=== PATIENT | male | born 1990 | race African-American/Black ===

== ENCOUNTER 2019-11-02 03:35 | Emergency (ER) | payer OTHER ==
[~2019-11-02] VITALS: Ht 177.8 cm; Wt 75.0 kg
[2019-11-02] MEDS ORDERED: SODIUM CHLORIDE 0.9% 1,000 ML IV ONE (06:45)
[2019-11-02] MEDS ORDERED: MORPHINE SULFATE 4 MG/ML CPJ (NOT FOR IM USE) IV ONE ×2 (06:45→09:00)
[2019-11-02] MEDS ORDERED: ONDANSETRON HCL 4MG/2ML INJ IV ONE (06:45)
[2019-11-02 06:59] LABS: BASOPHILS % 0.3 % (0.0-2.0); EOSINOPHILS % 1.5 % (0.0-5.0); HEMATOCRIT. 42.3 % (42.0-52.0); HEMOGLOBIN. 14.5 g/dL (14.0-18.0); LYMPHOCYTES % 14.8 % (20.0-50.0); MEAN CORPUSCULAR HEMOGLOBIN 30.7 pg (28.0-32.0); MEAN CORPUSCULAR VOLUME 89.6 fL (80.0-94.0); MEAN PLATELET VOLUME 8.7 fl (7.4-10.4); MONOCYTES % 6.4 % (2.0-8.0); PLATELET 255 x1000/uL (130-400); RED BLOOD CELL COUNT 4.72 mill/uL (4.7-6.1); RED CELL DISTRIBUTION WIDTH 13.3 % (11.6-14.6)
[2019-11-02] MEDS ORDERED: PHENYLEPHRINE 100MCG/ML 10ML VIAL (CATH LAB) IV PRN (07:00)
[2019-11-02] MEDS ORDERED: TERBUTALINE SULFATE 1MG/ML VIAL SUBCUT ONE (07:00)
[2019-11-02 07:02] LABS: CHLORIDE 105 mEq/L (98-107)
[2019-11-02 07:08] LABS: INR 0.9; PROTHROMBIN TIME 10.2 sec (9.6-11.0)
[2019-11-02 11:01] VITALS: BP 160/80
== END 2019-11-02 11:02 | disposition home or self-care (01) ==
LOC: ER 04:03
DX: N48.30 Priapism, unspecified (principal); I10 Essential (primary) hypertension; Z98.890 Other specified postprocedural states
CPT/HCPCS: 36415; 54220; 71045; 80048; 85025; 85610; 93005; 96372; 96374; 96375; 96376; 99285; J2270; J2370; J2405; J3105; J7030

== ENCOUNTER 2024-02-08 12:00 | Emergency (ER) | payer OTHER ==
[~2024-02-08] VITALS: Ht 177.8 cm; Wt 77.0 kg
[2024-02-08 12:08] VITALS: O2SAT 100
[2024-02-08] MEDS: LIDOCAINE HCL/PF 1% 10 MG/ML 5ML VIAL INFIL ONE (13:30)
[2024-02-08] MEDS: BACITRACIN ZINC OINT UDPKT TOP ONE (13:30)
[2024-02-08] MEDS: TETANUS, DIPHTHERIA, PERTUSSIS VAC/PF 0.5ML (>10YR OLD) IM ONE (13:30)
[2024-02-08] MEDS ORDERED: BO1 TP (15:13)
[2024-02-08 15:22] VITALS: BP 148/90; PULSE 61; RESP 61; TEMP 98.2
== END 2024-02-08 15:30 | disposition home or self-care (01) ==
LOC: ER 12:00
DX: S01.01XA Laceration without foreign body of scalp, initial encounter (principal); S51.011A Laceration without foreign body of right elbow, initial encounter; S61.511A Laceration without foreign body of right wrist, initial encounter; W18.39XA Other fall on same level, initial encounter; Y93.89 Activity, other specified; Y92.89 Other specified places as the place of occurrence of the external cause; Y99.8 Other external cause status
CPT/HCPCS: 12002; 12011; 73080; 73110; 90471; 90715; 99285; J3490

== ENCOUNTER 2024-02-16 12:41 | Emergency (ER) | payer OTHER ==
[~2024-02-16] VITALS: Ht 177.8 cm; Wt 73.0 kg
[~2024-02-16 12:41] MED LIST: BO1 TP
[2024-02-16 13:01] VITALS: O2SAT 100
[2024-02-16 15:11] VITALS: BP 138/87; PULSE 89; RESP 18; TEMP 98.5
== END 2024-02-16 14:52 | disposition home or self-care (01) ==
LOC: ER 12:41
DX: S51.011D Laceration without foreign body of right elbow, subsequent encounter (principal); I10 Essential (primary) hypertension; X58.XXXD Exposure to other specified factors, subsequent encounter
CPT/HCPCS: 99281